=== PATIENT | female | born 1970 | race Caucasian/White ===

== ENCOUNTER 2017-01-24 19:42 | Emergency (ER) | payer MEDICAID ==
[~2017-01-24] VITALS: Ht 152.4 cm; Wt 87.0 kg
[~2017-01-24 19:42] MED LIST: CYCL-319 PO
[2017-01-24 19:54] VITALS: Ht 152.4 cm; Wt 87.0 kg
[2017-01-24] MEDS ORDERED: ACETAMINOPHEN 500 MG TAB PO STA (20:37)
[2017-01-24 21:04] LABS: URINE BLOOD (Dip) POC Trace-lysed (NEGATIVE)
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
--- NOTE | 2017-01-24 22:28 | RADRPT ---
PROCEDURE: XR Lumbar Spine. CLINICAL INDICATION: Back pain TECHNIQUE: AP, lateral and cone-down lateral view of the lumbar spine were obtained. COMPARISON: No prior studies are available for comparison. FINDINGS: Facet hypertrophy in lower lumbar spine. Minimal curvature of lumbar spine with convexity to left. N o acute fracture or dislocation is seen. There is approximate 2-3 mm anterior displacement of L4 nirali tebral body on L5 consistent with degenerative changes. IMPRESSION: Degenerative changes. Please see above. RPTAT: HJES .Hola Da Silva MD, MD Date Time Electronically viewed and signed by .Hola Da Silva MD, MD on 01/24/2017 22:27 .S/
[2017-01-24] MEDS ORDERED: ACET500C5 PO (22:55)
[2017-01-24 23:05] VITALS: BP 131/65; PULSE 76; RESP 16
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
== END 2017-01-24 23:06 | disposition home or self-care (01) ==
LOC: FTE 19:42
DX: S39.91XA Unspecified injury of abdomen, initial encounter (principal); V43.62XA Car passenger injured in collision with other type car in traffic accident, initial encounter
CPT/HCPCS: 72100; 76705; 81003; Z7502; Z7610